=== PATIENT | male | born 1985 | race African-American/Black ===

== ENCOUNTER 2023-10-18 12:20 | Emergency (ER) | payer OTHER ==
[2023-10-18 13:38] LABS: BASO # 0.02 K/mm3 (0.02-0.10); EOS # 0.14 K/mm3 (0.04-0.40); EOS % 3.1 % (0.0-4.0); HEMATOCRIT 43.4 % (42.0-52.0); HEMOGLOBIN 14.4 g/dL (13.5-18.0); LYMPH# 1.01 K/mm3 (1.50-4.00); MEAN CELL VOLUME 94 fl (78-100); MEAN CORPUSCULAR HEMOGLOBIN 31 pg (27-31); MEAN CORPUSCULAR HGB CONC 33 g/dL (33-37); MEAN PLATELET VOLUME 10.8 fl (7.4-10.4); MONO # 0.47 K/mm3 (0.20-0.80); NEU # 2.82 K/mm3 (1.40-6.50); PLATELET COUNT 166 K/mm3 (130-400); RED BLOOD COUNT 4.61 M/mm3 (4.20-5.60); WHITE BLOOD COUNT 4.5 K/mm3 (4.8-10.8)
[2023-10-18 13:43] LABS: CALCIUM 9.2 mg/dL (8.3-10.5)
[2023-10-18 13:45] LABS: TOTAL PROTEIN 6.1 g/dL (6.4-8.3)
[2023-10-18 13:46] LABS: TOTAL BILIRUBIN 0.3 mg/dL (0.2-1.2)
[2023-10-18 14:18] LABS: URINE APPEARANCE CLOUDY (CLEAR); URINE COLOR YELLOW (YELLOW)
[2023-10-18 14:19] LABS: PH-URINE 7.5 (5.0 - 8.0); URINE BILIRUBIN NEGATIVE (NEGATIVE); URINE BLOOD 3+ (NEGATIVE); URINE GLUCOSE NEGATIVE (NEGATIVE); URINE KETONE NEGATIVE (NEGATIVE); URINE LEUKOCYTE ESTERASE NEGATIVE (NEGATIVE); URINE NITRATE NEGATIVE (NEGATIVE); URINE PROTEIN(semi-quant) 1+ (NEGATIVE)
[2023-10-18 14:20] LABS: URINE MUCUS PRESENT (NOT PRESENT)
[2023-10-18] MEDS ORDERED: NORCO 325 MG-51 TA1 PO (15:50)
[2023-10-18 19:09] VITALS: BP 114/79
== END 2023-10-18 19:09 | disposition home or self-care (01) ==
LOC: ED 12:20
PROVIDERS: Physician Assistant
DX: N20.1 Calculus of ureter (principal)
CPT/HCPCS: J3010; J7030